=== PATIENT | male | born 1950 ===

== ENCOUNTER 2020-09-18 11:57 | Outpatient (CLI) | payer OTHER | END 2020-09-18 11:58 | disposition home or self-care (01) | LOC: NAV RAD 11:57 | PROVIDERS: ATTEND Internal Medicine Rheumatology | DX: M25.511 Pain in right shoulder (principal); M25.512 Pain in left shoulder; M19.011 Primary osteoarthritis, right shoulder; M19.012 Primary osteoarthritis, left shoulder; M81.0 Age-related osteoporosis without current pathological fracture ==

== ENCOUNTER 2021-07-29 11:07 | Emergency (ER) | payer OTHER ==
[2021-07-29] MEDS ORDERED: Acetaminophen 500 MG TAB ONE (12:48)
== END 2021-07-29 12:55 | disposition home or self-care (01) ==
LOC: NAV ERS 11:07
DX: K94.23 Gastrostomy malfunction (principal); E11.649 Type 2 diabetes mellitus with hypoglycemia without coma; E11.22 Type 2 diabetes mellitus with diabetic chronic kidney disease; N18.4 Chronic kidney disease, stage 4 (severe); M19.90 Unspecified osteoarthritis, unspecified site; Z87.442 Personal history of urinary calculi; Z79.899 Other long term (current) drug therapy
CPT/HCPCS: 74018